=== PATIENT | female | born 1925 | race African-American/Black ===

== ENCOUNTER 2016-07-24 09:00 | Emergency (ER) | payer MEDICARE, OTHER ==
[~2016-07-24 09:00] MED LIST: ASAB PO; ASPER-FLEX10 % TOP; ATEN50 PO; CAT1 PO; CENTRUM PO; CIP5 PO; COREG12 PO; COREG25 PO; COSOPT OPH; CRESTOR40 MG PO; EXFORGE1 TA2 PO; EXFORGE1 TA3 PO; EYE DROPS OPH; EZFE 200200 MG PO; FLORASTOR250 MG PO; HYDROCHLOROT12.5 MG PO; HYGROTON 25 MG25 MG OR; IMDUR30 PO; LEVAQ250 PO; LIPITOR40 PO; LYRICA25 PO; MUCINEX600 MG PO; NEXIUM20 M1 PO; NEXIUM40 PO; NITROSTAT0.4 MG SL; NORCO1 TA2 PO; NORV10 PO; NUIRONCAP PO; PEP20 PO; PLAVIX PO; PROAIR HFA INH; PROTONIX PO; ROCALTROL 0.0.25 MCG PO; SPIRO25 PO; SUCR PO; TESS PO; ULTRAM50 PO; ZOFRAN4 PO
[2016-07-24 09:30] LABS: BASOPHILS 0 %; EOSINOPHILS 1.7 %; EOSINOPHILS ABSOLUTE 0.04 10/3/uL (0.0-0.53); HEMATOCRIT 31.1 % (36.0-48.0); HEMOGLOBIN 10.6 g/dL (12.0-16.0); IMMATURE GRANULOCYTES 1.7 %; IMMATURE GRANULOCYTES ABSOLUTE 0.04 10/3/uL (0.0-0.11); LYMPHOCYTES 40.7 %; LYMPHOCYTES ABSOLUTE 0.98 10/3/uL (0.67-4.30); MEAN CORPUS HGB CONC 34.1 g/dL (32.0-36.0); MEAN CORPUSCULAR HEMOGLOB 30.8 pg (26.0-34.0); MEAN CORPUSCULAR VOLUME 90.4 fL (80-100); MEAN PLATELET VOLUME 9.2 fL (9.2-13.0); MONOCYTES 6.2 %; MONOCYTES ABSOLUTE 0.15 10/3/uL (0.21-1.20); NEUTROPHILS 49.7 %; PLATELET COUNT 140 10/3/uL (150-400); RBC DISTRIBUTION WIDTH 13.2 % (12.0-16.0); RED CELL COUNT 3.44 10/6/uL (4.0-5.6)
[2016-07-24 09:33] LABS: ER CBC TAT 0 Hrs 07 Mins; WHITE BLOOD CELLS 2.4 10/3/uL (4.5-10.5)
[2016-07-24 09:34] LABS: MANUAL DIFF NO %
[2016-07-24 09:46] LABS: ALBUMIN 3.9 G/DL (3.5-5.0); ALKALINE PHOSPHATASE 65 U/L (45-117); BUN (BLOOD UREA NITROGEN) 51 MG/DL (6-23); CALCIUM, SERUM 9.5 MG/DL (8.5-10.4); CHLORIDE, SERUM 105 MMOL/L (96-112); CO2 (CARBON DIOXIDE) 23 MMOL/L (24-34); CREATININE 2.29 MG/DL (0.55-1.02); GFR AFRICAN AMERICAN 21 ML/MIN (>=60); GFR NON AFRICAN AMERICAN 18 ML/MIN (>=60); GLOBULIN 3.8 G/DL (2.5-4.1); GLUCOSE, SERUM 115 MG/DL (60-99); POTASSIUM, SERUM 4.4 MMOL/L (3.5-5.3); SGOT(AST) 13 U/L (5-40); SGPT(ALT) 15 U/L (5-65); SODIUM, SERUM 138 MMOL/L (135-148); TOTAL BILIRUBIN 0.8 MG/DL (0-1.2); TOTAL PROTEIN 7.7 G/DL (6.0-8.5)
[2016-10-06] MEDS ORDERED: CARDCD240 PO (18:02)
[2016-10-06] MEDS ORDERED: PR25 PO (18:02)
[2016-10-06] MEDS ORDERED: HYDROCHLOROT12.5 MG PO (18:03)
[2016-10-06] MEDS ORDERED: FERROUS SULF325 M1 PO (18:07)
[2016-10-06] MEDS ORDERED: ROCALTROL0.25 MCG PO (18:10)
== END 2016-07-24 10:42 | disposition home or self-care (01) ==
LOC: ER 09:00
PROVIDERS: Emergency Medicine
DX: I10 Essential (primary) hypertension (principal); J45.909 Unspecified asthma, uncomplicated; E78.5 Hyperlipidemia, unspecified; I73.9 Peripheral vascular disease, unspecified; I25.10 Atherosclerotic heart disease of native coronary artery without angina pectoris; I12.9 Hypertensive chronic kidney disease with stage 1 through stage 4 chronic kidney disease, or unspecified chronic kidney disease; N18.9 Chronic kidney disease, unspecified; K21.9 Gastro-esophageal reflux disease without esophagitis; Z86.73 Personal history of transient ischemic attack (TIA), and cerebral infarction without residual deficits; Z88.8 Allergy status to other drugs, medicaments and biological substances; Z79.82 Long term (current) use of aspirin; Z79.891 Long term (current) use of opiate analgesic; Z79.899 Other long term (current) drug therapy
CPT/HCPCS: 80053; 85025; 93005; 96374; 99283; A9270-GY; J0360